=== PATIENT | male | born 1955 | race Caucasian/White ===

== ENCOUNTER → 2017-08-09 | Outpatient (CLI) | payer BC ==
--- NOTE | 2017-08-09 09:25 | Diagnostic Imaging Report ---
PROCEDURE: US carotid duplex, bilateral. TECHNIQUE: Multiple real-time grayscale images were obtained over the carotid arteries in various projections, bilaterally. Additional duplex Doppler and color Doppler images were also obtained. INDICATION: Dizziness COMPARISON: None FINDINGS: RIGHT Peak Systolic CCA (cm/s) 121 Prox ICA(cm/s) 100 mid ICA(cm/s) 93 distal ICA(cm/s) 98 ECA (cm/s) 226 ICA/CCA 0.8 Vertebral antegrade LEFT Peak Systolic CCA (cm/s) 101 Prox ICA(cm/s) 79 mid ICA(cm/s) 0 distal ICA(cm/s) 0 ECA (cm/s) 307 ICA/CCA 0.8 Vertebral antegrade FINDINGS: Right carotid circulation: The right common carotid artery is normal in course and caliber. Mild atherosclerosis is seen at the carotid bulb. No hemodynamically significant stenosis is present. Left carotid circulation: The left common carotid artery is normal in course and caliber. A small amount of flow is seen at the proximal left internal carotid artery, however, no flow is appreciated in the mid and distal internal carotid artery. There is high-grade stenosis at the origin of the external carotid artery. Flow in the bilateral vertebral arteries is antegrade. IMPRESSION: 1. 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 High-grade stenosis at the origin of the left external carotid artery. 2. No hemodynamically significant stenosis based on flow velocity criteria in the right carotid arteries. Findings reported to STERLING MOODY MD by by the anesthesiology technologist immediately following the examination. Dictated by: Dictated on workstation # [id number]
== END ==
LOC: RAD 08:17
PROVIDERS: ATTEND Family Medicine
DX: I65.22 Occlusion and stenosis of left carotid artery (principal)
CPT/HCPCS: 93880

== ENCOUNTER 2017-11-26 09:14 | Outpatient (RCR) | payer BC | END 2018-01-11 | disposition home or self-care (01) | LOC: CR 09:14 | PROVIDERS: ATTEND Surgery | DX: Z48.812 Encounter for surgical aftercare following surgery on the circulatory system (principal); Z95.1 Presence of aortocoronary bypass graft | CPT/HCPCS: 93798 ==